=== PATIENT | male | born 1990 | race Caucasian/White ===

== ENCOUNTER 2022-08-02 10:55 | Outpatient (CLI) | payer MEDICARE, MEDICAID, SELFPAY ==
--- OUTSIDE RECORDS SUMMARY | 2022-08-02 10:57 | XMS_ITS | Clinical Summary ---
:1990 Author Organization [facility] [place] [address] Care Team Providers Name Role Phone JewelYadira Primary Care Provider Allergies No known active allergies Medications Medication Sig Dispensed Refills Start Date End Date Status DIAMOX SEQUELS 500 take 1 capsule 0 01/19/2007 Active MG CAPIndications: (500mg) by oral Variants of route 2 times per migraine, not day in the morning elsewhere and evening classified, without mention of intractable migraine without mention of status migrainosus ASPIRIN 81 MG chew 1 tablet 0 01/19/2007 A ctive CHEWABLE (81mg) by oral TABIndications: route once daily Variants of migraine, not elsewhere classified, without mention of intractable migraine without mention of status migrainosus divalproex Take 500 mg by 0 Acti ve (DEPAKOTE) 500 mg mouth once daily. Delayed-Release tablet lamoTRIgine Take 100 mg by 0 Act kody (LAMICTAL) 100 mg mouth 2 times tablet daily. magnesium 250 mg tab Take 500 mg by 0 Active mouth once daily. midazolam intranasal Inhale 0.2 mg/kg in 0 Active (VERSED) 5 mg/mL the nostril(s) one time if needed. venlafaxine (EFFEXOR Take 150 mg by 5 05/01/2019 Active XR) 150 mg mouth. Extended-Release capsule verapamil (CALAN) Take 240 mg by 0 Active 120 mg tablet mouth every morning. verapamil (CALAN) Take 120 mg by 0 Active 120 mg tablet mouth once daily in the evening. sennosides-docusate, Take 2 tablets by 60 tablet 0 09/03/2019 Active 8.6-50 mg, (SENOKOT mouth once daily. S) 8.6-50 mg tabletIndications: Post-op pain acetaminophen Take 2 tablets by 100 tablet 0 09/03/2019 Active (TYLENOL) 325 mg mouth every 4 hours tabletIndications: if needed (mild). Post-op pain Max acetaminophen dose: 4000mg in 24 hrs. methocarbamol Take 1 tablet by 30 tablet 0 09/03/2019 Active (ROBAXIN) 750 mg mouth every 6 hours tabletIndications: if needed. Post-op pain oxyCODONE Take 1-2 tablets by 20 tablet 0 09/03/2019 Active (ROXICODONE) 5 mg mouth every 4 hours immediate release if needed for Pain tabletIndications: (For moderate pain) Post-op pain Active Problems Not on file Social History Tobacco Use Types Packs/Day Years Used Date Never Smoker Sex Assigned at Date Recorded Not on file Obstetrics History Last Filed Vital Signs Vital Sign Reading Time Taken Comments Blood Pressure 139/86 09/03/2019 9:00 AM CDT Pulse 72 09/03/2019 9:00 AM CDT Temperature 36.7 ??C (98.1 ??F) 09/03/2019 9:00 AM CDT Respiratory Rate 18 09/03/2019 9:00 AM CDT Oxygen Saturation 96% 09/03/2019 9:00 AM CDT Inhaled Oxygen Concentration - - Weight 89.8 kg (198 lb) 09/02/2019 8:08 AM CDT Height 165.1 cm (5' 5) 09/02/2019 8:08 AM CDT Body Mass Index 32.95 09/02/2019 8:08 AM CDT Plan of Treatment Health Maintenance Due Date Last Done Comments COVID-19 vaccine series (#1) 06/10/1991 Tdap 2001 Depression screening for age 12+ 2002 BMI (ht and wt on same day) for age 18+ 2008 Hepatitis C screening for age 18-79 2008 Tetanus booster 2010 Influenza for age 9-49 07/19/2022 Medical Devices 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 [employer] Retail Device Shelf Model / Identifier Expiration Serial / Date Lot Lead Vagus Nerve 3mm Perenniaflex - [id number] Left: FoodBox 304-30# / Implanted: Qty: 1 on 09/02/2019 by Wang Faust MD at [facility] Chest [id number] [id number] / Explanted: at [facility] (Quantity not on file) Results Not on filefrom Last 3 Months Insurance Payer Benefit Plan / Subscriber ID Effective Dates Phone Addre ss Type Group MEDICARE PART A MEDICARE PART A [id number] 2019-Presen ATTN: CLAIMS - HB USE ONLY HB ONLY t [address] [place] [address] MEDICARE PART B MEDICARE PART B [id number] 2019-Presen ATTN: CLAIMS - HB USE ONLY HB ONLY t [address] [place] [address] MEDICAID [place] [id number] 2006-Present [address] [address] [place] [address] (Home) [place] [id number] Advance Directives Latest Code Status on File Code Status Date Activated Date Inactivated Comments Full Code 09/02/2019 8:02 AM 09/03/2019 4:51 PM Care Teams Food Runner Relationship Specialty Start Date End Date Yadira Holloway PCP - General Neurology - Child 08/27/[address] [address]
--- OUTSIDE RECORDS SUMMARY | 2022-08-02 10:57 | XMS_ITS | Encounter Summary ---
:1990 Author Organization [facility] Address [address] [place] [address] Phone Care Team Providers Name Role Phone Unavailable Primary Care Provider Unavailable Reason for Visit Reason Comments Seizure- Prior Hx Of Encounter Details Date Type Department Care Team Description 06/08/2017 Emergency [facility] Mihir Becerra, Non intractable epilepsy [facility] without status EMERGENCY DEPARTMENT [address] epilepticus, unspecified [address] [facility] epilepsy type (HCC) [place], [place] ([place]x) [phone] (Wo rk) Social History Tobacco Use Types Packs/Day Years Used Date Never Assessed Sex Assigned at Date Recorded Not on file documented as of this encounter Last Filed Vital Signs Vital Sign Reading Time Taken Comments Blood Pressure 134/93 06/08/2017 6:26 AM CDT Pulse 103 06/08/2017 6:22 AM CDT Temperature 36.4 ??C (97.6 ??F) 06/08/2017 6:22 AM CDT Respiratory Rate 18 06/08/2017 6:22 AM CDT Oxygen Saturation 97% 06/08/2017 6:26 AM CDT Inhaled Oxygen Concentration - - Weight 72.6 kg (160 lb) 06/08/2017 6:22 AM CDT Height - - Body Mass Index - - documented in this encounter Medications at Time of Discharge Medication Sig Dispensed Refills Start Date End Date lamoTRIgine (LAMICTAL) 150 Take 150 mg by mouth 0 MG tablet one time a day. verapamil (CALAN) 40 MG Take 40 mg by mouth 0 tablet three times a day. Aspirin (ASPIR-81 OR) Take by mouth. 0 Venlafaxine HCl (EFFEXOR Take by mouth. 0 OR) Divalproex Sodium (DEPAKOTE Take by mouth. 0 OR) documented as of this encounter Discharge Disposition Disposition Code Departure Means Destination Home and/or Self Long-Term documented in this encounter ED Notes Sabine Thomas RN - 06/08/2017 6:46 AM CDT 0608 Seizure started with nystagmus looking towards the right and right sided tonic clonic movement lasting 1-2 minutes. Mihir Becerra DO - 06/08/2017 6:17 AM CDT Patient: Drew Cervantes Means of Arrival: Wheelchair Chief Complaint: Seizure- Prior Hx Of History of Present Illness: 26-year-old male Disabled male ( functions at approximately 12-year-old level) with a usp history of a seizure disorder since he was 3 years old presents with his motherwho is reporting a repeat seizure. She notes that The patient takes Depakote daily for seizure prevention and when he has seizures she has Oral Versed but is reticent to use it. Apparently, he is a poor responded to Valium and Ativan but does well with IV Versed. Mom reports that the patient has had a total of 4 seizures over the last 30 minutes, all lasting less than one minute. The first being a focal seizure right upper extremity, followed by progressive generalized tonic/clonic seizures. He has otherwise been in his usualsinus normal state of health up to this. Review of Systems: Review of systems completed with the mother. Review of Systems Constitutional: Negative for activity change, appetite change, fatigue and fever. HENT: Negative. Respiratory: Negative for cough, choking and shortness of breath. Cardiovascular: Negative for chest pain. Gastrointestinal: Negative for abdominal pain, diarrhea, nausea and vomiting. Skin: Negative for rash. No Known Allergies Prior to Admission Medication List Aspirin (ASPIR-81 OR) Take by mouth. Divalproex Sodium (DEPAKOTE OR) Take by mouth. lamoTRIgine (LAMICTAL) 150 MG tablet Take 150 mg by mouth one time a day. Venlafaxine HCl (EFFEXOR OR) Take by mouth. verapamil (CALAN) 40 MG tablet Take 40 mg by mouth three times a day. Past Medical History: No past medical history on file. Past Surgical History: No past surgical history on file. Family History: No family history on file. Social History: He Exam: Initial Vitals Most Recent Vitals Temp: 97.6 ??F (36.4 ??C) (06/08/17604) Temp: 97.6 ??F (36.4 ??C) (06/08/17621) Pulse: 84 (06/08/17604) Pulse: 103 (06/08/17621) Resp: 18 (06/08/17604) Resp: 18 (06/08/17621) BP: (!) 134/93 (06/08/17621) BP: (!) 134/93 (06/08/17625) SpO2: 91 % (06/08/17604) SpO2: 97 % (06/08/17625) Physical Exam: Physical Exam General: Well-nourished, well-developed HEENT: OP clear, moist mucous membranes Cardiovascular: Heart regular rate and rhythm, no murmurs, gallops or rubs, no JVD, no HJR Lungs: Clear to auscultation bilaterally without wheezes, rhonchi, rales. Abdomen: Soft, nontender, nondistended, normoactive bowel sounds Extremities: No edema, distal pulses intact. Cap refill less than 2 seconds. Skin: No rash, warm, dry Neurological: rightwardly directed nystagmus, generalized tonic clonic activity visualized lasting approximately 1 minute with post seizure disorientation noted during exam. Lab Results: No results found for this visit on 06/08/17. 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 Oxygen was placed during seizure activity, IV access was obtained, and 2 mg of IV Versed was given to the patient. The patient did not have any recurrent seizure activity for one hour status post IV Versed. VSS, pt back to baseline fxn on exam and per mom. Discussedcontinued management of the seizures with the mother who has buccal versed at home and they gave a good understanding on the proper use of this. Follow-up in the emergency department as needed, continue the routine follow up with neurology/PCP. The mother gave a good understanding and agreed to POC. ED Course Procedures: Procedures Assessment: Nonintractable epilepsy without status epilepticus, unspecified epilepsy type (HCC) (primary encounter diagnosis) Plan: as above. Discharge Prescriptions None MDM Mihir Becerra DO 06/08/17 0719 Sabine Thomas RN - 06/08/2017 6:05 AM CDT Patients mother states that he is special needs and has a seizure history. He got oral Depakote at 0500. They have oral versed but didn't want to give it to him during the seizure because it knocks himout. documented in this encounter Plan of Treatment Not on filedocumented as of this encounter Visit Diagnoses Diagnosis Nonintractable epilepsy without status e pilepticus, unspecified epilepsy type (HCC) - Primary documented in this encounter Administered Medications Inactive Administered Medications Medication Order MAR Action Action Date Dose Rate Site midazolam (VERSED) injection 2 mg Given 06/08/2017 6:22 AM CDT 2 mg 2 mg, IV Push, ONCE, 1 dose, On 06/08/17 at 0630 midazolam (VERSED) injection ADS OVERRID E 1 dose, Starting on 06/08/17 at 0618, Until Sat 05/19 01/04 at 0622 documented in this encounter Historical Medications This list may reflect changes made after this encounter. Medication Sig Dispensed Refills Start Date End Date Divalproex Sodium (DEPAKOTE Take by mouth. 0 OR) Venlafaxine HCl (EFFEXOR Take by mouth. 0 OR) Aspirin (ASPIR-81 OR) Take by mouth. 0 verapamil (CALAN) 40 MG Take 40 mg by mouth 0 tablet three times a day. lamoTRIgine (LAMICTAL) 150 Take 150 mg by mouth 0 MG tablet one time a day. added in this encounter Active and Recently Administered Medications Times are shown in CDT. Scheduled Medication Order 06/06/2017 06/07/2017 06/08/2017 midazolam (VERSED) injection 2 mg (COMPLETED) 06 (Given - Provider: Sabine Thomas RN) 2 mg, IV Push, ONCE, 1 dose, 06/08/17 at 0630 documented in this encounter Orders Medications Ordered That Might Not Have Count Last Ord ered Date First Ordered Date Been Administered midazolam (VERSED) injection 1 mg 1 06/08/2017 documented in this encounter
--- OUTSIDE RECORDS SUMMARY | 2022-08-02 10:57 | XMS_ITS ---
:1990 Author Care Team Providers Name Role Phone DR. SAÚL ROSEN Primary Care Provider [phone] DR. XIN CRISOSTOMO Referring Provider [phone] Allergies Code Code System Name Reaction Severity Status Onset NKDA ? Medications Name Status Start Date Stop Date ? ? acetazolamide 250 mg tablet Active ? Not available divalproex ER 500 mg tablet,extended release 24 hr Active ? Not available lamotrigine 25 mg tablet Active ? Not kameron ilable Lorazepam Intensol 2 mg/mL oral concentrate Active ? Not available midazolam (PF) 5 mg/mL injection solution Active ? Not available midazolam 2 mg/mL oral syrup Active ? Not available venlafaxine ER 150 mg capsule,extended release 24 hr Active ? Not available venlafaxine ER 75 mg capsule,extended release 24 hr Active ? Not available verapamil ER (SR) 120 mg tablet,extended release Active ? Not available verapamil ER (SR) 240 mg tablet,extended release Active ? Not available Problems Name Status Onset Date Source ? Epileptic Seizure Active 06/12/2019 ? Basilar Migraine Active 06/12/2019 ? Procedures Date Name Performed by ? 06/22/2019 XR, Cervical Spine, 2 or 3 View [facility] Radiology Department [address] [place] [address] (Work Place) 06/22/2019 XR, Chest, 2 View [facility] Radiology Department [address] [place] [address] (Work Place) Results Lab Results None recorded. Past Encounters None recorded. Social History None recorded. Vaccine List None recorded. Plan of Care Reminders Provider Appointments None recorded. ? ? Lab None recorded. ? ? Referral None recorded. ? ? Procedures None recorded. ? ? Surgeries None recorded. ? ? Imaging None recorded. ? ? Vitals None recorded.
--- OUTSIDE RECORDS SUMMARY | 2022-08-02 10:57 | XMS_ITS | Clinical Summary ---
:1990 Author Organization [employer] [facility] Address [address] [address] Phone Care Team Providers Name Role Phone Unavailable Primary Care Provider Unavailable Allergies No known active allergies Medications Medication Sig Dispensed Refills Start Date End Date Status lamoTRIgine (LAMICTAL) Take 150 mg by 0 Active 150 MG tablet mouth one time a day. verapamil (CALAN) 40 MG Take 40 mg by 0 Active tablet mouth three times a day. Aspirin (ASPIR-81 OR) Take by mouth. 0 Active Venlafaxine HCl Take by mouth. 0 Active (EFFEXOR OR) Divalproex Sodium Take by mouth. 0 Active (DEPAKOTE OR) Social History Tobacco Use Types Packs/Day Years Used Date Never Assessed Sex Assigned at Date Recorded Not on file Last Filed Vital Signs Vital Sign Reading Time Taken Comments Blood Pressure 151/99 12/15/2017 5:24 AM WIRE MILL ROVER Pulse 85 12/15/2017 5:31 AM WIRE MILL ROVER Temperature 36.8 ??C (98.2 ??F) 12/15/2017 5:24 AM WIRE MILL ROVER Respiratory Rate 20 12/15/2017 5:24 AM WIRE MILL ROVER Oxygen Saturation 89% 12/15/2017 5:31 AM WIRE MILL ROVER Inhaled Oxygen Concentration - - Weight 77.1 kg (170 lb) 12/15/2017 5:24 AM WIRE MILL ROVER Height 165.1 cm (5' 5) 12/15/2017 5:24 AM WIRE MILL ROVER Body Mass Index 28.29 12/15/2017 5:24 AM WIRE MILL ROVER Plan of Treatment Not on file Insurance Payer Benefit Plan Subscriber ID Effective Phone Address Typ e / Group Dates HI MEDICAL [place] MEDICAL [id number] 2019-Sylvia [phone] DEPT OF [place] MAYDA MAYDA nt 11 [employer]UMAN [employer]/[facility] CLAIMS PROCESSING [address] [address] [place] [address] [phone] (Home) [place] [id number]
--- OUTSIDE RECORDS SUMMARY | 2022-08-02 10:57 | XMS_ITS | Encounter Summary ---
:1990 Author Organization [employer] [facility] Address [address] [address] Phone Care Team Providers Name Role Phone Unavailable Primary Care Provider Unavailable Reason for Visit Reason Comments Seizure- Prior Hx Of Encounter Details Date Type Department Care Team Description 12/15/2017 Emergency [facility] Sally Pereyra, Hemiplegic migraine without status migra inosus, not intractable (Primary Dx); [address] seiz[address] re ([facility]) EMERGENCY DEPARTMENT [address] [place] [id number] [phone] Social History Tobacco Use Types Packs/Day Years Used Date Never Assessed Sex Assigned at Date Recorded Not on file documented as of this encounter Last Filed Vital Signs Vital Sign Reading Time Taken Comments Blood Pressure 151/99 12/15/2017 5:24 AM 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 Pulse 85 12/15/2017 5:31 AM OUTSIDE BARREL 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 Temperature 36.8 ??C (98.2 ??F) 12/15/2017 5:24 AM OUTSIDE BARREL 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 Respiratory Rate 20 12/15/2017 5:24 AM OUTSIDE BARREL 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 Oxygen Saturation 89% 12/15/2017 5:31 AM OUTSIDE BARREL 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 Inhaled Oxygen Concentration - - Weight 77.1 kg (170 lb) 12/15/2017 5:24 AM OUTSIDE BARREL 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 Height 165.1 cm (5' 5) 12/15/2017 5:24 AM OUTSIDE BARREL 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 Body Mass Index 28.29 12/15/2017 5:24 AM OUTSIDE BARREL 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 documented in this encounter Functional Status Functional Status Response Date of Assessment Patient's Vision Adequate to Safely Complete Daily Yes 12/15/2017 Activities Patient's Memory Adequate to Safely Complete Daily Yes 12/15/2017 Activities Cognitive Status Response Date of Assessment Patient's Judgment Adequate to Safely Complete Daily Yes 12/15/2017 Activities documented as of this encounter Discharge Instructions Discharge InstructionsPalomo Pereyra DO - 12/15/2017 7:07 AM CST Patient was seen in the emergency room with the persistent motor activity seizure of the right upperextremity. The patient was treated with IV Ativan and supplemental oxygen and the symptoms have resolved. The patient observed for an hour. 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 Patient is similar episode during the last visit to [place]. They live in [place], [place]. They're visiting the area because of a hockey tournament. The patient's symptomatology was not abated with nasal and oral bursa. 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 The patient needs additional medication to suppress the motor cortex seizure activity. He's had seizure problems since age 3. He has significant medical disabilities impairments. 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 He does have a phrenic nerve pacemaker. He has chronic BiPAP needs. Review of Systems Constitutional: Positive for activity change and fatigue. HENT: Positive for congestion, facial swelling and trouble swallowing. Respiratory: Positive for apnea, cough, choking, chest tightness, shortness of breath and wheezing. Cardiovascular: Positive for palpitations. Gastrointestinal: Negative. Endocrine: Negative. Genitourinary: Negative. Musculoskeletal: Positive for arthralgias, gait problem, myalgias and neck stiffness. Allergic/Immunologic: Negative. Neurological: Positive for dizziness, tremors, seizures, facial asymmetry, weakness, light-headedness, numbness and headaches. Psychiatric/Behavioral: Positive for agitation, confusion, decreased concentration and sleep disturbance. The patient is nervous/anxious. No Known Allergies Prior to Admission Medication List Med List Status: ED Triage Only Set By: Carroll Arias RN at 12/15/2017 5:31 AM Aspirin (ASPIR-81 OR) Take by mouth. Divalproex [...] No family history on file. Social History: Social History Substance Use Topics ??? Smoking status: Not on file ??? Smokeless tobacco: Not on file ??? Alcohol use Not on file History Drug use: Unknown Exam: Initial Vitals Most Recent Vitals Temp: 98.2 ??F (36.8 ??C) (12/15/17523) Temp: 98.2 ??F (36.8 ??C) (12/15/17523) Pulse: 84 (12/15/17523) Pulse: 85 (12/15/17530) Resp: 20 (12/15/17523) Resp: 20 (12/15/17523) BP: (!) 151/99 (12/15/17523) BP: (!) 151/99 (12/15/17523) SpO2: (!) 84 % (12/15/17523) SpO2: (!) 89 % (12/15/17530) Physical Exam: Physical Exam Constitutional: He appears well-developed and well-nourished. He appears distressed. HENT: Head: Normocephalic and atraumatic. Eyes: Pupils are equal, round, and reactive to light. Patient does have nystagmus Neck: Normal range of motion. Neck supple. Cardiovascular: Normal rate, regular rhythm and intact distal pulses. Pulmonary/Chest: He is in respiratory distress. Patient does of his respiratory function. Abdominal: Soft. Bowel sounds are normal. He exhibits no distension. Musculoskeletal: He exhibits no edema, tenderness or deformity. Patient has a clonic type activity of the right upper extremity. Neurological: He is alert. Coordination abnormal. Skin: Skin is warm and dry. Nursing note and vitals reviewed. Lab Results: No results found for this visit on 12/15/17. Imaging Results: Imaging Results None Emergency Department Course: The patient is placed on oxygen therapy with a facial mask. The patient's given IV Ativan 2 mg. Patient observed in the emergency room for one hour post medication. He remains stable. He is discharged to home with parents. Continue previous medical management ED Course Procedures: Procedures Assessment: Hemiplegic migraine without status migrainosus, not intractable (primary encounter diagnosis) Focal seizure (HCC) Plan: Discharge Instructions Patient was seen in the emergency room with the persistent motor activity seizure of the right upper extremity. The patient was treated with IV Ativan and supplemental oxygen and the symptoms have resolved. The patient observed for an hour. Patient be discharged to home ExitCare Instructions None Discharge Prescriptions None [facility] Palomo Pereyra DO 12/15/17 0724 IDE BARREL 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 Carroll Arias RN - 12/15/2017 5:32 AM CST Patient has a HX of seizures. Had one this AM, mother gave 3mls of nasal versed but still continues to seize. Carroll Arais RN 12/15/2017 5:33 AM IDE BARREL 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 documented in this encounter Plan of Treatment Not on filedocumented as of this encounter Procedures Procedure Name Priority Date/Time Associated Diagnosis Comme nts OXYGEN THERAPY STAT 12/15/2017 5:58 AM OUTSIDE BARREL 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 documented in this encounter Visit Diagnoses Diagnosis Hemiplegic migraine without status migra inosus, not intractable - Primary Hemiplegic migraine, without mention of intractable migraine without mention of status migrainosus Focal seizure (HCC) Other convulsions documented in this encounter Administered Medications Inactive Administered Medications Medication Order MAR Action Action Date Dose Rate Site LORazepam (ATIVAN) injection 2 mg Given 12/15/2017 5:50 AM OUTSIDE BARREL 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 2 mg 2 mg, IV Push, ONCE, 1 dose, On 12/15/17 at 0600 documented in this encounter Active and Recently Administered Medications Times are shown in OUTSIDE BARREL 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. Scheduled Medication Order 12/13/2017 12/14/2017 12/15/2017 LORazepam (ATIVAN) injection 2 mg (COMPLETED) 0550 (Given - Provider: Carroll Arias RN) 2 mg, IV Push, ONCE, 1 dose, 12/15/17 at 0600 documented in this encounter Orders Medications Ordered That Might Not Have Count Last Ord ered Date First Ordered Date Been Administered LORazepam (ATIVAN) injection 2 mg 1 12/15/2017 Respiratory Care Count Last Ordered Date First Ordered Date OXYGEN THERAPY (SPECIFY) 12/15/2017 Nursing Count Last Ordered Date First Ordered Date SALINE LOCK IV 12/15/2017 documented in this encounter
--- NOTE | 2022-08-02 11:15 | CRLHL7_ITS ---
For Patients: As a result of the Century Cures Act, medical imaging exams and procedure reports are released immediately into your electronic medical record. You may view this report before your referring provider. If you have questions, please contact your health care provider. Indication: disorders of diaphragm Technique: Fluoroscopic sniff test. Fluoroscopic time 14 seconds. IMPRESSION: Normal motion of the right hemidiaphragm. The left hemidiaphragm is somewhat sluggish but there is no paradoxical movement. No paralysis of the left hemidiaphragm. Dictated by Ab Álvarez MD @ 08/02/2022 11:58:40 AM (Electronically Signed)
--- NOTE | 2022-08-02 11:30 | CRLHL7_ITS ---
For Patients: As a result of the Century Cures Act, medical imaging exams and procedure reports are released immediately into your electronic medical record. You may view this report before your referring provider. If you have questions, please contact your health care provider. Indication: DISORDERS OF DIAPHRAGM Technique: Noncontrast CT chest Please note that all CT scans at this facility use dose modulation, iterative reconstruction, and/or weight-based dosing when appropriate to reduce radiation dose to as low as reasonably achievable. Comparison: CT abdomen and pelvis 10/05/2019 Findings: Mild elevation left hemidiaphragm noted. Tiny punctate stones visualized in the upper kidneys. No pleural effusion or suspicious nodule. No adenopathy. Thoracic inlet normal. Left-sided subcutaneous devices present. No fracture. Lingular atelectasis. Impression: Mild elevation left hemidiaphragm with mild adjacent lingular atelectasis. Please note that all CT scans at this facility use dose modulation, iterative reconstruction, and/or weight-based dosing when appropriate to reduce radiation dose to as low as reasonably achievable. Dictated by Ab Álvarez MD @ 08/02/2022 12:18:03 PM (Electronically Signed)
== END 2022-08-02 10:56 | disposition home or self-care (01) ==
LOC: RAD 10:56
PROVIDERS: PCP Internal Medicine; Visit Provider Internal Medicine
DX: J98.6 Disorders of diaphragm (principal); R06.02 Shortness of breath; R06.9 Unspecified abnormalities of breathing; J98.11 Atelectasis
CPT/HCPCS: 71250; 76000

== ENCOUNTER 2022-09-26 13:00 | Outpatient (CLI) | payer MEDICARE, MEDICAID, SELFPAY ==
--- OUTSIDE RECORDS SUMMARY | 2022-09-26 10:49 | XMS_ITS | Encounter Summary ---
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, not intractable (Primary Dx); [address] Focal seizu re (HCC) [address] [place] [id number] [phone] Social History Tobacco Use Types Packs/Day Years Used Date Smoking Tobacco: Never Assessed Sex Assigned at Date Recorded Not on file documented as of this encounter Last Filed Vital Signs Vital Sign Reading Time Taken Comments Blood Pressure 151/99 12/15/2017 5:24 AM PACK PRESS OPERATOR Pulse 85 12/15/2017 5:31 AM PACK PRESS OPERATOR Temperature 36.8 ??C (98.2 ??F) 12/15/2017 5:24 AM PACK PRESS OPERATOR Respiratory Rate 20 12/15/2017 5:24 AM PACK PRESS OPERATOR Oxygen Saturation 89% 12/15/2017 5:31 AM PACK PRESS OPERATOR Inhaled Oxygen Concentration - - Weight 77.1 kg (170 lb) 12/15/2017 5:24 AM PACK PRESS OPERATOR Height 165.1 cm (5' 5) 12/15/2017 5:24 AM PACK PRESS OPERATOR Body Mass Index 28.29 12/15/2017 5:24 AM PACK PRESS OPERATOR documented in this encounter Functional Status [...] an hour. Patient be discharged to home PRESS OPERATOR documented in this encounter Medications at [...] Code Departure Means Destination Home and/or Self Assisted documented in this encounter ED Notes Palomo Pereyra DO - 12/15/2017 6:08 AM CST Patient: Drew Cervantes Means of Arrival: Wheelchair Chief Complaint: Seizure- Prior Hx Of History of Present Illness: Patient presents for treatment of his hemiplegic migraine with seizure activity and the motor cortexinvolving the right side of the body. Patient is similar episode during the last visit to [place]. They live in [place], [place]. They're visiting the area because of [...] home ExitCare Instructions None Discharge Prescriptions None [facility] Palomo Pereyra DO 12/15/17 0724 PRESS OPERATOR Carroll Arias RN - 12/15/2017 5:32 AM CST Patient has a HX of seizures. Had one this AM, mother gave 3mls of nasal versed but still continues to seize. 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 Scheduled Medication Order 12/13/2017 12/14/2017 12/15/2017 LORazepam (ATIVAN) injection 2 mg (COMPLETED) 0550 (Given - Provider: Carroll Arias, RN) 2 mg, IV Push, ONCE, 1 dose, 12/15/17 at 0600 documented in this encounter Orders Medications Ordered That Might Not Have Count Last Ord ered Date First Ordered Date Been Administered LORazepam (ATIVAN) injection 2 mg 1 12/15/2017 Respiratory Care Count Last Ordered Date First Ordered Date OXYGEN THERAPY (SPECIFY) 1 12/15/2017 Nursing Count Last Ordered Date First Ordered Date SALINE LOCK IV 12/15/2017 documented in this encounter
--- OUTSIDE RECORDS SUMMARY | 2022-09-26 10:49 | XMS_ITS | Encounter Summary ---
:1990 Author Organization [employer] Address [address] [address] Phone Care Team Providers Name Role Phone Unavailable Primary Care Provider Unavailable Reason for Visit Reason Comments Seizure- Prior Hx Of Encounter Details Date Type Department Care Team Description 06/08/2017 Emergency [facility] Mihir Becerra, Non intractable epilepsy [facility] without status EMERGENCY DEPARTMENT [address] [place] epilepticus, unspecified [address] [facility] epilepsy type (HCC) [place], [place] (Prim dolores Dx) [phone] (Wo [...] Code Departure Means Destination Home and/or Self Usp documented in this encounter ED Notes Sabine [...] functions at approximately 12-year-old level) with a shelter history of a seizure disorder since he [...] None Emergency Department Course: Procedural male with shelter disability and known seizure disorder presented with [...] 06/08/2017 midazolam (VERSED) injection 2 mg (COMPLETED) 0622 (Given - Provider: Sabine Thomas RN) 2 mg, IV Push, ONCE, 1 dose, 06/08/17 at 0630 documented in this encounter Orders Medications Ordered That Might Not Have Count Last Ord ered Date First Ordered Date Been Administered midazolam (VERSED) injection 1 mg 1 06/08/2017 documented in this encounter
--- OUTSIDE RECORDS SUMMARY | 2022-09-26 10:49 | XMS_ITS | Clinical Summary ---
:1990 Author Organization [employer] Address [address] [address] Phone Care Team Providers Name Role Phone [...] Comments Blood Pressure 151/99 12/15/2017 5:24 AM HEAD LIBRARIAN Pulse 85 12/15/2017 5:31 AM HEAD LIBRARIAN Temperature 36.8 ??C (98.2 ??F) 12/15/2017 5:24 AM HEAD LIBRARIAN Respiratory Rate 20 12/15/2017 5:24 AM HEAD LIBRARIAN Oxygen Saturation 89% 12/15/2017 5:31 AM HEAD LIBRARIAN Inhaled Oxygen Concentration - - Weight 77.1 kg (170 lb) 12/15/2017 5:24 AM HEAD LIBRARIAN Height 165.1 cm (5' 5) 12/15/2017 5:24 AM HEAD LIBRARIAN Body Mass Index 28.29 12/15/2017 5:24 AM HEAD LIBRARIAN Plan of Treatment Not on file Insurance Payer Benefit Plan Subscriber ID Effective Phone Address Typ e / Group Dates [place] [id number] 2019-Sylvia [phone] DEPT OF In dicaid MAYDA OHARA nt 11 HUMAN SERV/[facility] CLAIMS PROCESSING [address] [address] [place] [address] [phone] (Home) [place] [id number]
--- OUTSIDE RECORDS SUMMARY | 2022-09-26 10:49 | XMS_ITS ---
:1990 Author Care Team Providers Name Role Phone DR. SAÚL ROSEN Primary Care Provider [phone] DR. XIN CRISOSTOMO Referring Provider [phone] Allergies Code Code System Name Reaction Severity [...] XR, Cervical Spine, 2 or 3 View [facility] Radiology Department [address] [place] [address] (Work Place) 06/22/2019 XR, Chest, 2 View [facility] Radiology Department [address] [place] [address] (Work Place) Results Lab Results None recorded. [...]
--- OUTSIDE RECORDS SUMMARY | 2022-09-26 10:49 | XMS_ITS | Clinical Summary ---
:1990 Author Organization [employer] [facility] [place] [address] Care Team Providers Name Role Phone JewelYadira Primary Care Provider [phone] Allergies No known active allergies Medications Medication [...] 9-49 07/19/2022 Medical Devices Implanted Type Area Senior Windows Engineer Device Shelf Model / Identifier Expiration Serial / Date Lot Lead Vagus Nerve 3mm Perenniaflex - [id number] Left: Thismoment 304-30# / Implanted: Qty: 1 on 09/02/2019 by Wang Faust MD at [facility] Chest 035 95 / Explanted: at [facility] (Quantity not on file) Results Not on filefrom Last 3 Months Insurance Payer Benefit Plan / Subscriber ID Effective Dates Phone Addre ss Type Group MEDICARE PART A MEDICARE PART A [id number] 2019-Presen ATTN: CLAIMS - HB USE ONLY HB ONLY t [address] [place] [address] MEDICARE PART B MEDICARE PART B [id number] 2019-Presen ATTN: CLAIMS - HB USE ONLY HB ONLY t [address] [place] [address] [place] [id number] 2006-Present [address] [address] [place] [address] (Home) [place] [address] Advance Directives Latest Code Status on File Code Status Date Activated Date Inactivated Comments Full Code 09/02/2019 8:02 AM 09/03/2019 4:51 PM Care Teams Shingle Trimmer Relationship Specialty Start Date End Date Yadira Holloway PCP - General Neurology - Child 08/27/[address] [address]
[2022-09-26 14:14] LABS: Albumin* 4.7 g/dL (3.3-5.0); Chloride* 106 mmol/L (96-114)
[2022-09-26 14:15] LABS: Potassium* 4.1 mmol/L (3.6-5.1); Sodium* 140 mmol/L (135-149)
[2022-09-26 14:17] LABS: Aspartate Amino Transferase* 20 U/L (12-35); Bilirubin Total* 0.6 mg/dL (0.1-1.5); Blood Urea Nitrogen* 17 mg/dL (5-24); Carbon Dioxide* 23 mmol/L (20-32); Cholesterol* 211 mg/dL (90-199); Estimated Glomerular Filt Rate 103 ml/min; Total Protein* 7.1 g/dL (6.0-8.3)
[2022-09-26 14:18] LABS: Alanine Aminotransferase* 23 U/L (4-50); Alkaline Phosphatase* 91 U/L (40-150); Calcium* 9.1 mg/dL (8.4-10.6); Glucose* 89 mg/dL (60-115); HDL Cholesterol* 38 mg/dL (>=40); LDL Cholesterol Calculated 137 mg/dL (<100); Triglycerides* 179 mg/dL (40-149)
[2022-09-26 14:47] LABS: PSA Screen* 1.41 ng/mL (0.10-4.00)
== END 2022-09-26 13:01 | disposition home or self-care (01) ==
PROVIDERS: PCP Internal Medicine; Visit Provider Internal Medicine
DX: R56.9 Unspecified convulsions (principal); Z13.6 Encounter for screening for cardiovascular disorders; Z13.9 Encounter for screening, unspecified; Z12.5 Encounter for screening for malignant neoplasm of prostate
CPT/HCPCS: 80053; 80061; 80164; 80165; 84153

== ENCOUNTER 2022-11-07 12:52 | Outpatient (CLI) | payer MEDICARE, MEDICAID, SELFPAY | END 2022-11-07 12:53 | disposition home or self-care (01) | LOC: RAD 12:53 | PROVIDERS: PCP Internal Medicine; Visit Provider Internal Medicine Pulmonary Disease | DX: R06.00 Dyspnea, unspecified (principal) | CPT/HCPCS: 93306 ==

== ENCOUNTER 2022-12-19 10:07 | Outpatient (CLI) | payer MEDICARE, MEDICAID, SELFPAY ==
[2022-12-19 12:01] LABS: Albumin* 4.6 g/dL (3.3-5.0); Chloride* 108 mmol/L (96-114)
[2022-12-19 12:02] LABS: Potassium* 3.9 mmol/L (3.6-5.1); Sodium* 141 mmol/L (135-149)
[2022-12-19 12:04] LABS: Alkaline Phosphatase* 93 U/L (40-150); Aspartate Amino Transferase* 23 U/L (12-35); Bilirubin Total* 0.7 mg/dL (0.1-1.5); Blood Urea Nitrogen* 20 mg/dL (5-24); Carbon Dioxide* 24 mmol/L (20-32); Cholesterol* 217 mg/dL (90-199); Creatinine* 0.9 mg/dL (0.5-1.5); Estimated Glomerular Filt Rate 116 ml/min; Glucose* 89 mg/dL (60-115); Total Protein* 7.3 g/dL (6.0-8.3)
[2022-12-19 12:05] LABS: Alanine Aminotransferase* 27 U/L (4-50); Calcium* 9.2 mg/dL (8.4-10.6); HDL Cholesterol* 46 mg/dL (>=40); LDL Cholesterol Calculated 139 mg/dL (<100); Triglycerides* 161 mg/dL (40-149)
[2022-12-19 12:33] LABS: PSA Screen* 1.29 ng/mL (0.10-4.00)
== END 2022-12-19 10:08 | disposition home or self-care (01) ==
LOC: NFLDREF 10:08
PROVIDERS: PCP Internal Medicine; Visit Provider Internal Medicine
DX: Z00.00 Encounter for general adult medical examination without abnormal findings (principal); R56.9 Unspecified convulsions; Z13.6 Encounter for screening for cardiovascular disorders; Z12.5 Encounter for screening for malignant neoplasm of prostate
CPT/HCPCS: 80053; 80061; 84153

== ENCOUNTER 2023-10-02 15:43 | Outpatient (CLI) | payer MEDICARE, MEDICAID, SELFPAY | END 2023-10-02 15:44 | disposition home or self-care (01) | PROVIDERS: PCP Internal Medicine; Visit Provider Internal Medicine | DX: R63.5 Abnormal weight gain (principal) | CPT/HCPCS: 80053; 84443 ==

== ENCOUNTER 2025-08-18 11:48 | Outpatient (CLI) | payer MEDICARE, MEDICAID, SELFPAY | END 2025-08-18 11:49 | disposition home or self-care (01) | LOC: NFLDREF 08-20 15:31 | PROVIDERS: PCP Internal Medicine; Referring Provider Internal Medicine; Visit Provider Internal Medicine | DX: E78.5 Hyperlipidemia, unspecified (principal); Z13.9 Encounter for screening, unspecified | CPT/HCPCS: 80053; 80061 ==

== ENCOUNTER 2025-10-06 13:45 | Outpatient (RCR) | payer MEDICARE, MEDICAID, SELFPAY ==
--- NOTE | 2025-06-23 15:31 | PT.OPEX ---
PT [facility] Outpatient Eval PT [facility] Outpatient Eval Start: 06/23/25 09:25 Freq: Status: Active Protocol: Document 06/23/25 12:53 HLA (Rec: 06/23/25 15:27 HLA No Response) E-signed By Sarah Bradley, PT, DPT Physical Therapy Outpatient Evaluation Insurance Information Recert Due Date 09/20/25 Insurance Name Other; See Comments Insurance MCHP Information/Comments Medical Diagnosis B knee pain, inflexibility of UEs/LEs PMHx of obesity, intellectual disability, epilepsy, TBI , cerebral infarct, alveolar hypoventilation syndrome congenital central, abnormal conjugate gaze, psychosis, OA, hemiplegic [id number], diaphragmatic paralysis Treating Diagnosis weakness, impaired ROM, impaired gt/transfers Referring MD Hillary Subjective Preferred Name Drew Subjective Drew reports his walking has been more problematic, more tripping, no falls but close lately, 2 falls in the past 3 months. One in [facility] and one tripping at [facility]. He also feels more SOB and that is related to his diaphragmatic paralysis. His baseline is ind amb, lives in a 1 level home, 2 steps to enter, 2 steps down to his basement bedroom. Holds railing on stairs, no falling but fears falling as I get so fast. Tires as he goes up the stairs. He can walk up to 1 mile but finds he is more SOB and stops more frequently. Works at [employer]. He has had some knee pain, stiffness of his legs and L shoulder. He does not exercise at home. Family is asking for help with his balance, strength and coordination to keep Drew as ind as possible. Pain Comments pain occ L shldr and B knees. 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 Precautions Treatment diaphragmatic paralysis with poor tolerance supine, Precautions/ prone-better with seated and standing activities Contraindications Weight Bearing Weight Bear as Tolerated Status Therapy Limitations/ Cognition Systems Review Objective Range of Motion shldrs L shldr flex 0-150/R 0-170 flex, L abd 0-120 pain at end range,R full, ER/IR full B elbow/wrist/hands full hips 10-105 B flex, abd 5-45, ER/IR 0-45 knees 0-110 B ankles full DF/PF Strength L/R shldrs flex 5/5 B except L abd 4+/5 elbow/wrist/hands full B hips 5-/5 flex, ext abd/add 5/5 knees 5/5 ankles 4+/5, 5-/5 Palpation tenderness L shldr with end range stretch tenderness B knees with sit<>stand Balance & Gait Gt with stiff shldrs, elevated, lacks arm swing B, veers R, did hit wall on R x 2 over 100 foot distance Stairs with railing sba Balance testing below Posture elevated shldrs, stiff spine/thoracic curve flattened Sensation/Reflexes intact to light touch tremors B hands and LEs Other/Pertinent Access Code: [email or web address] Objective URL: [email or web address] Date: 06/23/2025 Prepared by: Sarah Bradley Exercises - Standing 'L' Stretch at Counter - 1 x daily - 7 x weekly - 1 sets - 3 reps - 20 hold - Single Leg Stance with Support - 1 x daily - 7 x weekly - 1 sets - 3 reps - 20 hold - Tandem Walking with Counter Support - 1 x daily - 7 x weekly - 1 sets - 3 reps - Standing Gastroc Stretch at Counter - 1 x daily - 7 x weekly - 13 sets - 3 reps - 20 hold Functional Test 5 time sit<>stand 10.81 sec Performed & Score TUG 9.31 sec Functional Reach 10 inches = low fall risk HONEYCUTT 49/56 shows fall risk LEFS 41.3% or 33/80 Assessment Assessment/ 34-year-old male with hx of obesity, intellectual Impression disability, epilepsy, TBI, cerebral infarct, alveolar hypoventilation syndrome congenital central, abnormal conjugate gaze, psychosis, OA, hemiplegic migraine, diaphragmatic paralysis was referred to PT due to B knee pain, inflexibility of UEs/LEs. Pt lives in the basement level of his home, ind ADLS overall, notes difficulty stepping over tub to shower. He does not drive. 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 Pt wears dark glasses, dx of abnormal conjugate gaze. He is able to answer most questions; caregiver did assist with hx. Family notes worry of his coordination and balance impairment as well as general deconditioning/ stiffness with his SOB from diaphragmatic paralysis affecting his mobility and reducing his ind. Pt primarily c/o stiffness of L shldr, back, knees and ankles. He presents with good to normal strength, tight HS, HC, shldrs and LB. Movement appears stiff, lacks B arm swing with gt and veers R. Balance testing shows fall risk, elias with HONEYCUTT 49/56. Coordination impaired, increased difficulties with dual tasking. We did start with balance/coord ex at home to work on with caregiver , L shldr stretch and B HC stretches. Pt/caregiver educated in therapy intervention and goals to increase his overall mobility, improve balance/coordination and to establish a fitness program that he can do at home to improve his overall function. Recommend weekly PT sessions to achieve goals. Primary Functional impaired ROM, strength, stiffness, impaired balance/ Limitations coordination, gt stiffness/ Plan of Care Rehabilitation Good Potential Physical Therapy Within 6-8 weeks Goals 1. Pt will have full B shldr AROM for ADLs, work activities 2. Pt will be ind in home ex program for stretch, strengthening and balance to promote ind and reduce fall risk, reduce pain and stiffness of shldrs, knees and back. 3. Pt will score 20% increase on balance testing. Coordination/ Referral Source,Patient Caregiver Communication With Treatment Plan/ Dry Needling,Gait Training,Heat,Ice/Cold/Vasopneumatic, Direct Interventions Joint Mobilization,Manual Therapy,Neuromuscular Re-ed, Orthotics/Braces,Self-Care/Home Management,Therapeutic Activities,Therapeutic Exercises Patient Will Be Completion of LTG(s),Skills Plateau,Independent w/HEP, Discharged From Independently Progressing Therapy Evaluation Billing Untimed Code 25 Treatment Minutes PT Eval No Charge No Complexity Moderate Certification Information Initial 06/23/25 Certification Date Ending Certification 09/20/25 Date Provider Signature Yes Required Provider Signature POC & Medical Necessity Shows Agreement With Physician NPI Number Write NPI# Here Physician Comment/ : Change Physician Signature Please Sign/Date Here & Date Requested
== END 2025-10-06 14:28 | disposition home or self-care (01) ==
PROVIDERS: PCP Internal Medicine; Visit Provider Internal Medicine
DX: M25.561 Pain in right knee (principal); M25.562 Pain in left knee; R29.898 Other symptoms and signs involving the musculoskeletal system; Z51.89 Encounter for other specified aftercare
CPT/HCPCS: 97110; 97112; 97162